=== PATIENT | male | born 1955 | race Caucasian/White ===

== ENCOUNTER 2016-11-22 08:21 | Day surgery (SDC) | payer BC, OTHER ==
[~2016-11-22 08:21] MED LIST: Lactated Ringers 1,000 ML IV SCH
[2016-11-22] MEDS ORDERED: Propofol 200 MG/20 ML SDV ONE (09:41)
[2016-11-22] MEDS ORDERED: fentaNYL 100 MCG/2 ML SDV ONE ×2 (09:41→09:46)
[2016-11-22 11:19] VITALS: BP 150/82
--- NOTE | 2016-11-26 12:05 | OR ---
PREOPERATIVE DIAGNOSIS: Screening colonoscopy. POSTOPERATIVE DIAGNOSIS: Essentially normal colonoscopic exam. PROCEDURE PROPOSED: Total flexible colonoscopy. PROCEDURE DONE: Total flexible colonoscopy. INDICATION: This is a 69-year-old gentleman who comes in for 10-year screening colonoscopy, he had one at age 51. He denies any symptomatology and he has a negative family history of colon cancer. TECHNIQUE: The patient was brought to the endoscopy suite, placed in left lateral decubitus position, he was sedated per [employer] with propofol. The flexible video colonoscope was then passed transanally and under visualization advanced to the cecum. Examination revealed a normal ascending, transverse, descending, sigmoid, and rectal colon. There was no evidence of any polyps, diverticulosis, colitis, or any other abnormalities. The scope was then withdrawn. The patient tolerated the procedure well. FINAL IMPRESSION: Essentially normal colonoscopic exam. PLAN: The patient was reassured. I felt he could wait 10 years before he needs a repeat exam. SCM: 11/22/2016 10:50:03 MODL: 11/22/2016 14:31:05 /[id number]
== END 2016-11-22 11:39 | disposition home or self-care (01) ==
LOC: VM.SDS 08:21
PROVIDERS: ATTEND Surgery
DX: Z12.11 Encounter for screening for malignant neoplasm of colon (principal); E78.5 Hyperlipidemia, unspecified; Z98.890 Other specified postprocedural states; Z87.891 Personal history of nicotine dependence; Z79.899 Other long term (current) drug therapy
CPT/HCPCS: 45378; J2704; J3010; J7120